=== PATIENT | male | born 1935 | race Caucasian/White ===

== ENCOUNTER 2020-12-30 19:01 | Inpatient (IN) | payer MEDICARE, BC ==
[~2020-12-30] VITALS: Ht 180.3 cm; Wt 87.5 kg
[2020-12-30 19:30] LABS: BASOPHILS % (AUTO) 1 % (0-1); EOSINOPHILS % (AUTO) 1 % (1-7); LYMPHOCYTES % (AUTO) 17 % (22-44); MEAN CORPUSCULAR HEMOGLOBIN 32.9 pg (27.5-34.5); MEAN CORPUSCULAR HGB CONC 34.9 g/dL (33.2-36.2); MEAN PLATELET VOLUME 10.1 fL (7.4-10.4); MONOCYTES % (AUTO) 19 % (2-9); NEUTROPHILS % (AUTO) 62 % (42-75); PLATELET COUNT 139 x10^3/uL (130-400); RED BLOOD COUNT 5.75 x10^6/uL (4.38-5.82); RED CELL DISTRIBUTION WIDTH 14.8 % (9.4-14.8)
[2020-12-30 19:43] LABS: ALANINE AMINOTRANSFERASE 27 U/L (12-78); ALBUMIN 3.6 g/dL (3.4-5.0); ANION GAP 11 mmol/L (5-15); CALCIUM 8.8 mg/dL (8.5-10.1); CHLORIDE 112 mmol/L (98-107); CREATININE 1.09 mg/dL (0.7-1.3)
[2020-12-30 19:47] LABS: ALKALINE PHOSPHATASE 58 U/L (45-117); BILIRUBIN,TOTAL 1.8 mg/dL (0.2-1.0); TOTAL PROTEIN 7.2 g/dL (6.4-8.2)
--- NOTE | 2020-12-30 20:15 | NUR ---
MD at bedside, pt denies CP
[2020-12-30] MEDS ORDERED: HEPARIN 25,000 UNITS/250ML PMX 250 ML ONE (20:18)
--- NOTE | 2020-12-30 20:20 | NUR ---
Attempted to call pt's , Arelis Lang, for pt's home med list and pharmacy, no answer, left message. [phone]
[2020-12-30] MEDS ORDERED: HEPARIN 25,000 UNITS/250ML PMX 250 ML IV PRN (20:30)
[2020-12-30] MEDS ORDERED: HEPARIN 5,000 UNITS/ML, 1ML IV ONE (20:30)
[2020-12-30] MEDS ORDERED: PLEASE ENTER ALLERGIES MC SCH (20:30)
[2020-12-30] MEDS ORDERED: LABETALOL 5MG/ML, 20ML IVPush ONE (20:30)
[2020-12-30] MEDS ORDERED: HEPARIN 5,000 UNITS/ML, 1ML ONE (20:50)
--- NOTE | 2020-12-30 21:06 | NUR ---
LIZA RYAN () [phone] CALLED BACK FOR MEDS LIST
[2020-12-30] MEDS ORDERED: NAPR-857 PO (21:25)
[2020-12-30] MEDS ORDERED: ATOR20TA37 PO (21:25)
[2020-12-30] MEDS ORDERED: ASPI-963 PO (21:25)
[2020-12-30] MEDS ORDERED: OMEP20CA20 PO (21:25)
[2020-12-30] MEDS ORDERED: LATA7.5D EACHEYE (21:25)
[2020-12-30] MEDS ORDERED: LEVO25TA2 PO (21:25)
[2020-12-30] MEDS ORDERED: AZEL205.2 NAS (21:25)
[2020-12-30] MEDS ORDERED: ALBU0.63 NEB (21:25)
[2020-12-30] MEDS ORDERED: LOSA1TAB22 PO (21:25)
--- NOTE | 2020-12-30 21:25 | NUR ---
Pt's med list complete
--- NOTE | 2020-12-30 21:50 | NUR ---
Attempted to call report to floor, on hold
[2020-12-30] MEDS ORDERED: BISACODYL 10 MG SUPP PR PRN (22:00)
[2020-12-30] MEDS ORDERED: POLYETHYLENE GLYCOL 17 GM PACKET PO PRN (22:00)
[2020-12-30] MEDS ORDERED: ONDANSETRON ODT 4 MG PO PRN (22:00)
[2020-12-30] MEDS: AZELASTINE HCL NAS SCH (22:00)
[2020-12-30] MEDS ORDERED: morphine SULFATE 10 MG/ML, 1ML IVPush PRN (22:00)
[2020-12-30] MEDS ORDERED: ACETAMINOPHEN 325 MG TABLET PO PRN (22:00)
[2020-12-30] MEDS ORDERED: ALBUTEROL SULFATE 2.5 MG/3 ML NEB PRN (22:00)
[2020-12-30] MEDS ORDERED: NITROGLYCERIN 0.4 MG BOTTLE (25 TABS) SL PRN (22:00)
--- NOTE | 2020-12-30 22:02 | NUR ---
Report called to NILESH Linton on
[2020-12-30] MEDS: SODIUM CHLORIDE FLUSH 10ML SYR IVF SCH (22:51)
[2020-12-30] MEDS: ATORVASTATIN 20 MG TABLET PO SCH (22:51)
[2020-12-30 23:58] VITALS: BP 144/71
[2020-12-31 03:10] VITALS: BP 113/63
[2020-12-31 03:18] LABS: BASOPHILS % (AUTO) 1 % (0-1); EOSINOPHILS % (AUTO) 1 % (1-7); LYMPHOCYTES % (AUTO) 20 % (22-44); MEAN CORPUSCULAR HEMOGLOBIN 32.3 pg (27.5-34.5); MEAN CORPUSCULAR HGB CONC 34.3 g/dL (33.2-36.2); MEAN PLATELET VOLUME 10.5 fL (7.4-10.4); MONOCYTES % (AUTO) 21 % (2-9); NEUTROPHILS % (AUTO) 57 % (42-75); PLATELET COUNT 126 x10^3/uL (130-400); RED BLOOD COUNT 5.52 x10^6/uL (4.38-5.82)
[2020-12-31 03:26] LABS: ANION GAP 8 mmol/L (5-15); CALCIUM 8.4 mg/dL (8.5-10.1); CHLORIDE 110 mmol/L (98-107); CHOLESTEROL, TOTAL 117 mg/dL (140-239); CREATININE 1.02 mg/dL (0.7-1.3); TRIGLYCERIDES 118 mg/dL (50-200); VLDL CHOLESTEROL 24 mg/dL (0-25)
[2020-12-31 03:28] LABS: HDL CHOL % 25 % (26-37); HDL CHOLESTEROL (DIRECT) 29 mg/dL (40-60); LDL CHOLESTEROL,CALCULATED 64 mg/dL (54-169); LDL/HDL RATIO 2.2 (0.5-3.0)
[2020-12-31] MEDS: HEPARIN 5,000 UNITS/ML, 1ML IV PRN ×2 (03:32→10:29)
[2020-12-31] MEDS: ASPIRIN 81 MG TABLET EC PO SCH (06:08)
[2020-12-31] MEDS: LEVOTHYROXINE 25 MCG TABLET PO SCH (06:08)
[2020-12-31 06:48] VITALS: BP 119/70
[2020-12-31] MEDS ORDERED: TEMPLATE NON-FORMULARY MED. (Losartan/Hydrochlorothiazide** (Losartan-Hctz 100-25 Mg Tab PO SCH (09:00)
[2020-12-31] MEDS: SENNA/DOCUSATE TABLET PO SCH (09:00)
[2020-12-31] MEDS: AZELASTINE HCL NAS SCH ×2 (09:00→21:00)
[2020-12-31] MEDS: LOSARTAN 100 MG TAB PO SCH (10:28)
[2020-12-31] MEDS: HYDROCHLOROTHIAZIDE 25 MG TABLET PO SCH (10:28)
[2020-12-31] MEDS: SODIUM CHLORIDE FLUSH 10ML SYR IVF SCH ×2 (10:28→21:00)
[2020-12-31 12:47] VITALS: BP 151/78
[2020-12-31] MEDS ORDERED: BIVALIRUDIN 250 MG ONE (15:12)
[2020-12-31] MEDS ORDERED: LIDOCAINE 1%, 20ML ONE (15:12)
[2020-12-31] MEDS ORDERED: MIDAZOLAM 1 MG/ML, 2ML ONE (15:12)
[2020-12-31] MEDS ORDERED: FENTANYL PF 100 MCG/2ML ONE (15:12)
[2020-12-31] MEDS ORDERED: VERAPAMIL 2.5 MG/ML, 2ML ONE (15:12)
[2020-12-31] MEDS ORDERED: TICAGRELOR 90 MG TABLET ONE (15:58)
[2020-12-31] MEDS ORDERED: BIVALIRUDIN 250 MG in SODIUM CHLORIDE 0.9% 50 ML IV SCH (16:30)
[2020-12-31 19:43] VITALS: BP 157/77
[2020-12-31] MEDS: ATORVASTATIN 20 MG TABLET PO SCH (20:25)
[2020-12-31] MEDS: TICAGRELOR 90 MG TABLET PO SCH (20:25)
[2020-12-31] MEDS ORDERED: OMEPRAZOLE 20 MG CAPSULE.DR PO SCH (21:00)
[2020-12-31] MEDS ORDERED: LATANOPROST OPHTH 0.005%, 2.5ML EACHEYE SCH (21:00)
[2021-01-01 00:27] VITALS: BP 134/66
[2021-01-01 05:28] LABS: ANION GAP 7 mmol/L (5-15); CALCIUM 9.2 mg/dL (8.5-10.1); CHLORIDE 109 mmol/L (98-107)
[2021-01-01 05:32] LABS: ALANINE AMINOTRANSFERASE 24 U/L (12-78); ALBUMIN 3.4 g/dL (3.4-5.0); ALKALINE PHOSPHATASE 60 U/L (45-117); BILIRUBIN,TOTAL 3.2 mg/dL (0.2-1.0); CREATININE 1.03 mg/dL (0.7-1.3); TOTAL PROTEIN 6.8 g/dL (6.4-8.2)
[2021-01-01] MEDS: ASPIRIN 81 MG TABLET EC PO SCH (05:46)
[2021-01-01] MEDS: LEVOTHYROXINE 25 MCG TABLET PO SCH (05:47)
[2021-01-01 07:23] VITALS: BP 132/71
[2021-01-01] MEDS: HYDROCHLOROTHIAZIDE 25 MG TABLET PO SCH (08:43)
[2021-01-01] MEDS: LOSARTAN 100 MG TAB PO SCH (08:43)
[2021-01-01] MEDS: SODIUM CHLORIDE FLUSH 10ML SYR IVF SCH (08:43)
[2021-01-01] MEDS: TICAGRELOR 90 MG TABLET PO SCH (08:43)
[2021-01-01] MEDS: SENNA/DOCUSATE TABLET PO SCH (08:44)
[2021-01-01] MEDS: AZELASTINE HCL NAS SCH (08:44)
[2021-01-01 13:04] VITALS: BP 135/65
[2021-01-01 14:30] VITALS: BP 138/75
[2021-01-01] MEDS ORDERED: LIDOCAINE 1%, 20ML ONE (17:09)
[2021-01-01] MEDS ORDERED: CLOP75TA52 PO (17:50)
== END 2021-01-01 19:52 | disposition home or self-care (01) | DRG 40 ==
LOC: ED 21:09 → EDIP 21:15 → 5SO 22:28
PROVIDERS: ADMIT Family Medicine; ATTEND Family Medicine
PROC: 027034Z Dilation of Coronary Artery, One Artery with Drug-eluting Intraluminal Device, Percutaneous Approach (ICD-10-PCS; principal; 2020-12-31)
PROC: 4A023N7 Measurement of Cardiac Sampling and Pressure, Left Heart, Percutaneous Approach (ICD-10-PCS; 2020-12-31)
PROC: B2111ZZ Fluoroscopy of Multiple Coronary Arteries using Low Osmolar Contrast (ICD-10-PCS; 2020-12-31)
PROC: 5A09357 Assistance with Respiratory Ventilation, Less than 24 Consecutive Hours, Continuous Positive Airway Pressure (ICD-10-PCS; 2020-12-31)
PROC: 0JH632Z Insertion of Monitoring Device into Chest Subcutaneous Tissue and Fascia, Percutaneous Approach (ICD-10-PCS; 2021-01-01)
PROC: 5A09357 Assistance with Respiratory Ventilation, Less than 24 Consecutive Hours, Continuous Positive Airway Pressure (ICD-10-PCS; 2021-01-01)
DX: I63.9 Cerebral infarction, unspecified (principal); I21.4 Non-ST elevation (NSTEMI) myocardial infarction; E03.9 Hypothyroidism, unspecified; E78.5 Hyperlipidemia, unspecified; G47.33 Obstructive sleep apnea (adult) (pediatric); G89.29 Other chronic pain; G93.89 Other specified disorders of brain; H91.90 Unspecified hearing loss, unspecified ear; I10 Essential (primary) hypertension; Z85.038 Personal history of other malignant neoplasm of large intestine; Z87.891 Personal history of nicotine dependence; Z90.49 Acquired absence of other specified parts of digestive tract; Z79.899 Other long term (current) drug therapy
CPT/HCPCS: 33285; 36415; 70551; 80048; 80053; 80061; 83036; 84484; 85025; 85520; 93005; 93306; 93356; 93458; 94660; 96374; 96375; 99156; 99157; C1764; C1769; C1894; C9600; G0378; J0583; J1644; J2250; J3010; 92523-GN; C1725; C1874; C1887; Q9967